=== PATIENT | female | born 1965 | race Caucasian/White ===

== ENCOUNTER 2016-11-13 08:43 | Outpatient (CLI) | payer OTHER ==
--- NOTE | 2016-11-13 10:21 | DIAGNOSTIC IMAGING REPORT ---
PROCEDURE: US SOFT TISSUE ANYWHERE INDICATION: SCALP LUMP TECHNIQUE: [place] scale and color Doppler sonographic images of the neck were obtained COMPARISON: None available FINDINGS: Sonographically normal tissue. No suspicious cyst, solid mass, hypervascularity, or abnormal shadowing. The patient's palpable lumps are symmetrical and appear to correspond to the trapezius muscles. IMPRESSION: 1. Sonographically normal tissue.
== END 2016-11-13 23:00 ==
LOC: US SRH 08:43
DX: R22.0 Localized swelling, mass and lump, head (principal)

== ENCOUNTER 2016-11-30 16:23 | Outpatient (CLI) | payer OTHER ==
--- NOTE | 2016-11-30 17:37 | DIAGNOSTIC IMAGING REPORT ---
PROCEDURE: XR CERVICAL SPINE 4 OR 5 VIEW INDICATION: CERVICALGIA TECHNIQUE: Five views. COMPARISON: None. FINDINGS: There is cervical kyphosis at C5-6 following an artificial disc and posterior fusion. There is narrowing of the neural foramen at C5-6 on the left. IMPRESSION: 1. Cervical kyphosis at C5-6 with impingement of the neural foramen on the left.
== END 2016-11-30 23:00 ==
LOC: XR SRH 16:23
DX: M40.292 Other kyphosis, cervical region (principal)

== ENCOUNTER 2016-12-19 10:06 | Outpatient (CLI) | payer OTHER ==
--- NOTE | 2016-12-19 12:06 | DIAGNOSTIC IMAGING REPORT ---
PROCEDURE: CT CERVICAL SPINE W/CONTRAST INDICATION: CERVICAL DISC DISORDER W/MYELOPATHY TECHNIQUE: Axial CT images were obtained through the cervical spine following 100 ml Isovue 300 IV. Coronal and sagittal reformations were created. COMPARISON: Cervical spine x-ray 11/30/2016 FINDINGS: C5-6 anterior surgical fusion with a disc spacer. Previous posterior pedicle screws and vertical bars have been removed. There is moderate kyphosis and C5-6. Mild degenerative changes. Normal alignment without fracture. Paraspinal soft tissues are unremarkable. No evidence of enhancing mass. Severe emphysema. C2-3: Small disc bulge. No foraminal stenosis. Thickening of the ligament flava with mild spinal stenosis. C3-4: Mild broad-based disc bulge. No foraminal stenosis. There is mild spinal stenosis. C4-5: No disc bulge. Right uncovertebral degenerative changes with mild right foraminal stenosis. Mild spinal stenosis. C5-6: Small disc bulge. Uncovertebral joint degenerative changes with bilateral mild to moderate foraminal stenosis. No spinal stenosis. C6-7: Small disc bulge. With uncovertebral degenerative changes resulting in mild bilateral foraminal stenosis. No spinal stenosis. C7-T1: Small disc with thickening of the ligament flava resulting in mild spinal stenosis. There is no foraminal stenosis. IMPRESSION: 1. C5-6 surgical fusion with mild kyphosis 2. Mild degenerative changes with multilevel disc bulging 3. Mild C2-3, C3-4, C4-5 and C7-T1 spinal stenosis. 4. Mild right C4-5, mild to moderate bilateral C5-6 and mild bilateral C6-7 foraminal stenosis. 5. Recommend cervical spine MRI for better evaluation of the soft tissues, including the spinal cord. All CT scans at this facility use dose modulation, iterative reconstruction, and/or weight-based dosing when appropriate to reduce radiation dose to as low as reasonably achievable.
== END 2016-12-19 23:00 ==
LOC: CT SRH 10:06
DX: M50.222 Other cervical disc displacement at C5-C6 level (principal); M48.02 Spinal stenosis, cervical region; Z98.1 Arthrodesis status

== ENCOUNTER 2017-04-19 15:41 | Outpatient (CLI) | payer OTHER ==
--- NOTE | 2017-04-19 16:16 | DIAGNOSTIC IMAGING REPORT ---
PROCEDURE: XR ABDOMEN 1 VIEW INDICATION: FLANK PAIN TECHNIQUE: AP supine view. COMPARISON: None. FINDINGS: Multiple right upper quadrant surgical clips. Bilateral pelvic surgical clips. Large amount of stool in the ascending colon obscuring the right kidney. 7 mm calcific density projecting over the left kidney. Nonspecific bowel gas pattern. Bones are unremarkable. IMPRESSION: 1. 7 mm left renal calcification 2. Moderate stool obscuring the right kidney. 3. Right upper quadrant surgical clips and bilateral tubal ligation.
== END 2017-04-19 23:00 | disposition home or self-care (01) ==
LOC: XR SRH 15:41
DX: R10.9 Unspecified abdominal pain (principal); N28.89 Other specified disorders of kidney and ureter; K59.00 Constipation, unspecified; Z98.51 Tubal ligation status